=== PATIENT | female | born 1975 | race Caucasian/White ===

== ENCOUNTER → 2017-06-08 15:48 | Outpatient (CLI) | payer SELFPAY ==
--- NOTE | 2017-06-08 13:45 | EMB_PTH ---
PATIENT: BARTOLO DARDEN LOC: [facility] U#:[id number] AGE/SX: 49/F ROOM: RE06/08/[address]: Dr. Arnold Monet MD : 1975 BED: DIS: SPEC #: [id number] RECD: 06/08/17 15:46 STATUS: ROBERTO CARLOS JOBY #: [id number] CARLTON: 06/08/17 13:[address]: Arnold Monet DEPT: SURGICAL PATHOLOGY RECD BY: Fabian Randolph Tissues: Endometrium, NOS Procedures: Surgery Specimen Level IV HEADER OPERATION: Endometrial biopsy PRE-OP DIAGNOSIS: N93.9 TISSUE SUBMITTED: Endometrial biopsy MICROSCOPIC DIAGNOSIS Endometrial biopsy: Simple cystic hyperplasia without atypia. KENA:fay 06/10/17 MICROSCOPIC DESCRIPTION Slides are reviewed. GROSS DESCRIPTION Received in fixative is one container labeled with the patient's name and designated EMB. The specimen consists of multiple fragments of dark brown and campbell tissue measuring in aggregate 3 x 2.5 x 0.5 totally submitted in one cassette. /RY:sp 06/09/17 TC: 5 CPT: 97148
== END ==
PROVIDERS: Visit Provider Obstetrics & Gynecology
DX: N85.01 Benign endometrial hyperplasia (principal); N93.9 Abnormal uterine and vaginal bleeding, unspecified
CPT/HCPCS: 88305

== ENCOUNTER 2017-08-04 05:31 | Day surgery (SDC) | payer SELFPAY ==
[2017-07-27 15:57] LABS: Hematocrit 33.4 % (37-47); Hemoglobin 10.6 g/dl (12.0-15.0); Mean Corp Hgb Conc 31.7 g/gl (32-36); Mean Corpuscular Hgb 26.9 pg (27.0-32.0); Mean Corpuscular Volume 84.8 fL (81-99); Mean Platelet Vol. 8.4 fl (6.2-12.0); Platelet Count 388 K/mm3 (150-450); RBC Distribution Width CV 12.8 % (11.6-14.6); RBC Distribution Width SD 39.4 fl (35.1-43.9); Red Blood Count 3.94 M/mm3 (4.2-5.4); White Blood Count 7.1 K/mm3 (4.4-11.0)
[2017-07-27 15:58] LABS: Scan Indicated on CBC? Y/N NO
[2017-07-27 16:06] LABS: Partial Thromboplast Time 28.1 Seconds (24.1-36.2); Prothrombin Time (Protime)PT. 13.1 SECONDS (11.7-14.9)
[2017-07-27 16:51] LABS: Creatinine, Serum 0.61 mg/dL (0.55-1.02); EST Glomerular Filtration Rate 113 mL/min (>60); Est Glom Filt Rate - Afr Amer 137 mL/min (>60)
[2017-07-27 17:01] LABS: Pregnancy, Serum, hCG Quali. NEGATIVE Negative (0-9 Nonpreg)
--- NOTE | 2017-08-03 19:36 | PCM.HP.BLA ---
History and Physical Date of Admission: 08/04/17 Surgical History and Physical Mar Ash, a 42 year old female 4 0 1 0 4, presents for RAVH/BS on August 04, 2017 at 7:30. -- Simple cystic hyperplasia without atypia -- 42 y.o. G 5 P 4 non-smoker with history of Irregular Menses with bright red bleeding and clots. Reports that she may go months without a menses, then will have bleeding periodically(but almost daily) for several months. EMBx in the office showed hyperplasia. Pt declines conservative treatment and desires to proceed with the above surgery. MEDICATIONS HISTORY: Current medications prescribed by our practice are: 1. Provera 10 mg tablet, One pill by mouth once a day ALLERGIES: No Known Allergies Infections - Chicken pox Illnesses - no serious past illnesses Accidents - None Hospitalizations - see surgery Review of Systems: GENERAL - Denies fever, or chills SKIN - Denies skin changes EYES - wears eye glasses EARS - Denies difficulty hearing NOSE - Denies nasal congestion or bleeding MOUTH - Denies sore throat or difficulty swallowing NECK - Denies pain or swelling RESPIRATORY - Denies shortness of breath or wheezing CARDIOVASCULAR - Denies palpitations or chest pain GASTROINTESTINAL - Denies nausea, vomiting, diarrhea, constipation GENITOURINARY - Denies dysuria, frequency of urination, incontinence of urine MUSCULOSKELETAL - Denies joint or muscle pain NEUROLOGICAL - Denies localized numbness or weakness PSYCHIATRIC - Denies depression or anxiety ENDOCRINE - Denies heat or cold intolerance, weight loss or gain HEMATO-IMMUNOLOGIC - Denies excesive bleeding with cuts SOCIAL HISTORY: Alcohol Use - None Smoking - Never Diet - no special diet Lifestyle - moderate stress lifestyle and Exercise - active work Seat Belt Use - occasional Employer - [employer] Job Description - Senior Litigation Paralegal Illicit Drug Use - None Sexual Activity - Spouse-Sig Other Name - Tani Spouse-Sig Other Occupation - Disabled ([employer]) Children Name(s) - Sameera(99), Elsa(02), Darron(05), Po(08) Control - Not active FAMILY HISTORY: MENSTRUAL HISTORY: LMP Known?- Approximate-Month KnownAmount/Duration - excess amount, Regularity - Irregular, Frequency - variable days, LMP - 07/12/17, Age Onset Menarche - 13 PAST PREGNANCIES: Total Pregnancies - 5; Full Term Pregnancies - 4; Premature - 0; Abortions, Induced - 0; Abortions, Spontaneous - 1; Ectopics - 0; Multiple Births - 0; Living Children - 4 SURGICAL HISTORY: 1. 11/16/2007 PHYSICAL EXAM BP- 140/96 Sitting, Right arm, large cuff Temp- 98.6 Taken Orally Weight- 303.44166 lbs Height- 65.75 inch BMI:49.38 CONSTITUTIONAL - NAD, well nourished, and well developed SKIN - No rash, lesions, or ulcers HEENT - Normocephalic, PERRLA, EOMI NECK - No nodes, no nuchal rigidity and thyroid normal size and texture LYMPH NODES - Palpation of lymph nodes in neck and groins within normal limits LUNGS - CTA x2 without wheezes, crackles or rales CARDIAC - Regular rate and rhythm without rubs, murmurs, or gallops BREAST - No dominant masses, no tenderness, no axillary adenopathy, no nipple discharge, no skin changes ABDOMEN - Without hepatosplenomegaly, distention, masses, rebound, or guarding; normal bowel sounds; no hernias EXTREMITIES - No edema or calf tenderness NEUROLOGICAL - Cranial nerves II-XII grossly intact PSYCHIATRIC - A and O to time, place, person, mood and affect External Genitial Vagina - non-tender without lesions Urethra/Urethral Meatus - non-tender Bladder - non-tender Vagina - vaginal arias are pink and moist without loss of rugae and no evidence of atropy and blood in vagina Cervix - without cervical motion tenderness and has normal size and features without evident lesions Uterus - enlarged uterus 8 wks, wt 125-150 g Adnexa - clear without masses or tenderness ASSESSMENT/PLAN: 1. 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 Pt desires proceeding with RAVH/BS. Discussed RBAs and all questions answered.
[2017-08-04] VITALS (17 sets, daily range): BP systolic 118–148; BP diastolic 65–92; PULSE 57–81; RESP 14–18; TEMP 36.3–37; O2SAT 94–99; BMI 48.9
[2017-08-04 06:00] LABS: Internal QC Validated? YES +Cl - CLEAR BKGD; Pregnancy, Urine Negative Negative
--- NOTE | 2017-08-04 07:30 | HYST_PTH ---
PATIENT: BARTOLO DARDEN LOC: [facility] [place] U#:[id number] AGE/SX: 42/F ROOM: RE08/04/[address]: Dr. Arnold Monet MD : 1975 BED: DIS: 08/05/2017 SPEC #: [id number] RECD: 08/04/17 15:17 STATUS: ROBERTO CARLOS JOBY #: [id number] CARLTON: 08/04/17 07:[address]: Arnold Monet DEPT: SURGICAL PATHOLOGY RECD BY: Sole Sheldon ENTERED: 08/05/17 14:02 SP TYPE: HYSTERECT OTHR DR: Dr. Brian Kwan MD Tissues: Uterus, NOS Procedures: Surgery Specimen Level V HEADER OPERATION: Robotic-assisted vaginal hysterectomy, bilateral salpingectomy PRE-OP DIAGNOSIS: Cystic endometrial hyperplasia without atypia TISSUE SUBMITTED: Uterus, cervix, bilateral fallopian tubes MICROSCOPIC DIAGNOSIS Uterus, cervix, bilateral fallopian tubes, vaginal hysterectomy and bilateral salpingectomy: Cervix ? chronic cystic cervicitis and squamous metaplasia. Endometrium ? proliferative endometrium. - focal superficial hemorrhage, consistent with status post curettage artifacts. - a benign endometrial polyp with cystic changes. Myometrium - no pathologic diagnosis. Bilateral fallopian tubes - no pathologic diagnosis. Right paratubal cyst. SJ:rg 08/09/17 COMMENT Please make reference to previous specimen ([id number]) endometrial biopsy with diagnosis of simple cystic hyperplasia without atypia. Case has been reviewed in consultation with Dr. Alex who concurs with the above diagnosis. IDC:AM MICROSCOPIC DESCRIPTION Slides are reviewed. GROSS DESCRIPTION Received in fixative is one container labeled with the patient's name and designated uterus, cervix, bilateral fallopian tubes. The specimen consists of a hysterectomy specimen consisting of uterus with cervix and attached bilateral fallopian tubes. The uterus with cervix weighs 262 gm and measures 13.5 x 8 x 7 cm. The serosal surface is smooth, glistening with a few instrumentation gonsalves. The ectocervical mucosa is unremarkable. The external os is slit-like in contour. The endocervical canal measures 5 cm in length and the endocervical mucosa is campbell, glistening and unremarkable. The triangular endometrial cavity measures 6 cm in length and up to 3 cm in width. The endometrium is campbell, glistening and hemorrhagic and measures up to 0.2 cm in thickness. A small, possible sessile polyp is noted at the level of internal os. Sections of the uterine wall do not reveal any mass lesion and measures up to 3.5 cm in thickness. The right fallopian tube measures 8.5 cm in length and 0.5 cm in diameter. The fimbrial end is identified. Sections reveal unremarkable cut surfaces. A paratubal cyst is noted filled with chocolate-brown material. The left fallopian tube measures 9 cm in length and 0.8 cm in diameter. It is similar appearance to right. Deckhand Clam Dredge sections are submitted in 14 cassettes as follows: 1 - anterior cervix, 2 - posterior cervix, 3-7 - anterior uterine wall, 8-12 - posterior uterine wall (the entire endometrium is submitted), 13 ? right fallopian tube and paratubal cyst, 14 ? left fallopian tube. / KENA:nancie 08/05/17 TC: CPT: 57667
--- NOTE | 2017-08-04 07:33 | PCM.OP.BLANK ---
Operative Report Date of Procedure: 08/04/17 Surgeon: Arnold Monet MD, FACOG Executive Creative Director: Griffin Garcia CRNA Anesthesia: Tenzin Mims CRNA Type of anesthesia: General Endotracheal Procedure: Robotic Assisted Vaginal Hysterectomy and Bilateral Salpingectomy Pre-Op: Cystic Simple Endometrial Hyperplasia Post-Op: Cystic Simple Endometrial Hyperplasia Findings: 14 cm uterus with normal appearing tubes and ovaries bilaterally Indication: This is a 42 year old patient who has been having problems with heavy and prolonged periods and recently had a biopsy of the endometrium which showed simple cystic endometrial hyperplasia. Conservative measures have not been helpful. The patient has been counseled regarding the risks, benefits and alternatives of this procedure including the possibility of bleeding, infection, and injury to surrounding structures such as bowel bladder and all questions were answered. She understands that is BSO is needed that she will need to be on HRT for an indefinite period of time. Procedure: Pt taken to the operating room where after induction of general anesthesia the patient was prepped and draped in the usual sterile fashion and placed on a non-slip Huggy-u-vac device. Trendendelenburg test was satisfactory. Bladder was drained of urine with a Love catheter which was left in place. Anterior cervix grasped and cervix was dilated to about 3-4 mm. Uterus sounded to 14 cms. 0-Vicryl suture was placed at the 3:00 and 9:00 position of the cervix. A large large v-care device was then placed in the uterus to allow uterine manipulation and attention was turned to the laparoscopic portion of the procedure. Ropivocaine 0.5% was injected approximately 2-3 cm superior to the umbilicus and varies needle was used to insufflate the abdomen after hanging drop technique was used. The abdomen was insufflated with CO2 gas. A 5 mm left upper quadrant port was introduced and airseal insufflation with CO2 was started. An 8 mm robotic camera port was introduced. 8 mm robotic side ports were introduced under direct visualization approximately 11-13 cm lateral and 2 cm inferior to the umbilical port. The above findings were noted. Robot was docked without difficulty and attention turned to the robotic portion of the procedure. Approximately 30 cc of Ropivicaine was used. Bilateral mesosalpinx were ligated with 35 palafox bipolar coagulation to the level of the round ligament. The posterior aspect of the cervix was identified and then opened for about 1 cm using 25 watt monopolar cautery identifying the V-care device which had been placed vaginally. Bladder flap was opened and divided to the level of the round ligaments using monopolar cautery. Progressive bites were then ligated on each side of the cervix with 35 palafox bipolar cautery to the uterine arteries. The anterior vaginal mucosa was then entered and cervix circumscribed with monopolar cautery. Uterus and attached tubes were then removed through the vagina. Vaginal cuff was closed first with 0-Vicryl Sri stitches placed at each angle followed by closure of the mid-cuff with 0-Monocryl V-lock suture in two layers. Pelvis was copiously irrigated with saline and the right ureter was noted to peristalse. Some oozing was noted from the bladder flap so Tuan was used to help with postoperative hemostasis. Robot was undocked and trocars were removed with as much gas as possible. Incisions were closed with 4-0 Monocryl subcuticular sutures and incisions covered with steri-strips and opsite dressing. The patient tolerated the procedure well and was taken to the recovery room in satisfactory condition. Sponge, instruments and needle counts were all correct. There were no apparent complications of the surgery. Cefotan 2 gms IV was given prior to the procedure. Estimated Blood Loss: Minimal Specimen to Pathology: Uterus and bilateral tubes
--- NOTE | 2017-08-04 07:36 | OP.PCM_ITS ---
Operative Report Date of Procedure: 08/04/17 Surgeon: Arnold Monet MD, FACOG Business Administration Professor: Griffin Garcia CRNA Anesthesia: Tenzin Mims CRNA Type of anesthesia: General Endotracheal Procedure: Robotic Assisted Vaginal Hysterectomy and Bilateral Salpingectomy Pre-Op: Cystic Simple Endometrial Hyperplasia Post-Op: Cystic Simple Endometrial Hyperplasia Findings: 14 cm uterus with normal appearing tubes and ovaries bilaterally Indication: This is a 42 year old patient who has been having problems with heavy and prolonged periods and recently had a biopsy of the endometrium which showed simple cystic endometrial hyperplasia. Conservative measures have not been helpful. The patient has been counseled regarding the risks, benefits and alternatives of this procedure including the possibility of bleeding, infection , and injury to surrounding structures such as bowel bladder and all questions were answered. She understands that is BSO is needed that she will need to be on HRT for an indefinite period of time. Procedure: Pt taken to the operating room where after induction of general anesthesia the patient was prepped and draped in the usual sterile fashion and placed on a non-slip Huggy-u-vac device. Trendendelenburg test was satisfactory. Bladder was drained of urine with a Love catheter which was left in place. Anterior cervix grasped and cervix was dilated to about 3-4 mm. Uterus sounded to 14 cms. 0-Vicryl suture was placed at the 3:00 and 9:00 position of the cervix. A large large v-care device was then placed in the uterus to allow uterine manipulation and attention was turned to the laparoscopic portion of the procedure. Ropivocaine 0.5% was injected approximately 2-3 cm superior to the umbilicus and varies needle was used to insufflate the abdomen after hanging drop technique was used. The abdomen was insufflated with CO2 gas. A 5 mm left upper quadrant port was introduced and airseal insufflation with CO2 was started. An 8 mm robotic camera port was introduced. 8 mm robotic side ports were introduced under direct visualization approximately 11-13 cm lateral and 2 cm inferior to the umbilical port. The above findings were noted. Robot was docked without difficulty and attention turned to the robotic portion of the procedure. Approximately 30 cc of Ropivicaine was used. Bilateral mesosalpinx were ligated with 35 palafox bipolar coagulation to the level of the round ligament. The posterior aspect of the cervix was identified and then opened for about 1 cm using 25 watt monopolar cautery identifying the V -care device which had been placed vaginally. Bladder flap was opened and divided to the level of the round ligaments using monopolar cautery. Progressive bites were then ligated on each side of the cervix with 35 palafox bipolar cautery to the uterine arteries. The anterior vaginal mucosa was then entered and cervix circumscribed with monopolar cautery. Uterus and attached tubes were then removed through the vagina. Vaginal cuff was closed first with 0-Vicryl Sri stitches placed at each angle followed by closure of the mid- cuff with 0-Monocryl V-lock suture in two layers. Pelvis was copiously irrigated with saline and the right ureter was noted to peristalse. Some oozing was noted from the bladder flap so Tuan was used to help with postoperative hemostasis. Robot was undocked and trocars were removed with as much gas as possible. Incisions were closed with 4-0 Monocryl subcuticular sutures and incisions covered with steri-strips and opsite dressing. The patient tolerated the procedure well and was taken to the recovery room in satisfactory condition. Sponge, instruments and needle counts were all correct. There were no apparent complications of the surgery. Cefotan 2 gms IV was given prior to the procedure. Estimated Blood Loss: Minimal Specimen to Pathology: Uterus and bilateral tubes
--- NOTE | 2017-08-04 07:36 | PCM.DC.VHY ---
Discharge Diet: No Restrictions Discharge Activity: Return to Normal Activity, May Not Drive - while taking narcotic pain medications., May Shower, May Take a Tub Bath May resume sexual activity in: 6-8 weeks Call your doctor if your incision/area has: Continuous Slow Oozing, Sudden Increased Bleeding, Increased Pain/ Swelling, Increased Redness, Foul Smelling Discharge Call your doctor if you observe: Fever of 101 or Higher, Inability to urinate, Inability to have a bowel movement, Using more than one pad per hour Allergies/Adverse Reactions: Allergies No Known Allergies Allergy (Verified 07/27/17 10:30) Medications to take at Discharge Calcium Carbonate [Calcium] 600 mg PO DAILY 07/27/17 Magnesium Oxide [Magnesium] 400 mg PO DAILY 07/27/17 Medroxyprogesterone Acetate [Provera] 10 mg PO QMONTH 07/27/17 Vitamin B Complex 1 each PO DAILY 07/27/17 Docusate Sodium [Colace] 100 mg PO BID PRN PRN #60 cap 08/04/17 Oxycodone [Oxyir] 5 mg PO Q6H PRN PRN 7 Days #20 tab 08/04/17 The following prescriptions were given: Oxycodone [Oxyir] 5 mg PO Q6H PRN PRN 7 Days #20 tab PRN Reason: Severe Pain (-12/21) Docusate Sodium [Colace] 100 mg PO BID PRN PRN #60 cap PRN Reason: Constipation Primary Care Physician: Brian Kwan MD [Primary Care Provider] - Please Follow Up With: Arnold Monet MD When: 2-3 weeks
[2017-08-04] MEDS: Ropivacaine 0.5% 30 ML Vial (08:40)
--- NOTE | 2017-08-04 12:30 | SUR.PHASEI ---
urine output via glass is 15cc postop/ pt states she feels urge to urinate/ bladder scanned 0cc/ pt educated of potential bladder sensations with cath inplace
[2017-08-04] MEDS: Acetaminophen 500 MG Tablet 1000 MG PO ×2 (15:00→22:20)
[2017-08-04] MEDS: Dextrose 5%-Lactated Ringers 1,000 ML 150 ML IV ×2 (15:37→23:36)
[2017-08-04] MEDS: Ketorolac 30 MG/ML Syringe IV ×2 (16:42→22:20)
[2017-08-04] MEDS: Enoxaparin 40 MG/0.4 ML Syringe SC (18:26)
[2017-08-04] MEDS: 0.9% NaCl Peripheral Flush Adult/Peds IV (22:20)
[2017-08-05] MEDS: Acetaminophen 500 MG Tablet 1000 MG PO (05:05)
[2017-08-05] MEDS: 0.9% NaCl Peripheral Flush Adult/Peds IV ×2 (05:06→10:18)
[2017-08-05] MEDS: Ketorolac 30 MG/ML Syringe IV ×2 (05:06→10:18)
[2017-08-05 05:14] VITALS: BP 118/75; PULSE 85; RESP 18; TEMP 37.4; O2SAT 95
[2017-08-05 06:14] LABS: Creatinine, Serum 0.71 mg/dL (0.55-1.02); EST Glomerular Filtration Rate 96 mL/min (>60); Est Glom Filt Rate - Afr Amer 116 mL/min (>60); Estimated Creatinine Clearance 95.64 ml/min
[2017-08-05 07:23] VITALS: O2SAT 93
[2017-08-05 08:02] VITALS: BP 137/80; PULSE 79; RESP 18; TEMP 36.8; O2SAT 96
--- NOTE | 2017-08-05 09:12 | PCM.PN.OB ---
Subjective: Patient without complaints. Feeling well. Able to void on her own. Denies flatus. - Physical Exam Vital Signs AF, VSS Temp Pulse Resp BP Pulse Ox 98.3 F 79 18 137/80 H 96 08/05/17 08:02 08/05/17 08:02 08/05/17 08:02 08/05/17 08:02 08/05/17 08:02 Oxygen Flow Rate (L/min) 2 Oxygen Delivery Method Room Air Weight: 303 lb 5.697 oz Body Mass Index (BMI) 48.9 Intake and Output for Last 24 Hours 08/03/17 08/04/17 08/05/17 23:59 23:59 23:59 Intake Total 4830 / 4830 2471 / 2471 Output Total 810 / 810 1300 / 1300 Balance 4020 / 4020 1171 / 1171 Laboratory Tests Past 24 Hrs 08/05/17 08/05/17 05:30 05:30 WBC Pending RBC Pending Hgb Pending Hct Pending MCV Pending MCH Pending MCHC Pending RDW Pending RDW Differential Pending Plt Count Pending Neut % (Auto) Pending Absolute Neuts (auto) Pending Total Counted Pending Creatinine 0.71 Estim Creat Clear Calc 95.64 Est GFR (MDRD) Af Amer 116 Est GFR (MDRD) Non-Af 96 Wounds are clean, dry, intact. Good urine output. Minimal vaginal bleeding. Creatinine okay. Hemoglobin pending. Medical Necessity - Tobacco Use Smoking Status: Never smoker Assessment/Plan Doing well. Will release to home with routine instructions.
[2017-08-05 09:20] LABS: Absolute Lymphocyte Count 1.92 X10^3/ul (0.83-4.51); Absolute Neutrophil Count 7.9 X10^3/uL (2.0-7.7); Basophil# 0.01 X10^3/uL; Basophil% 0.1 % (0-1); Eosinophil# 0.03 X10^3/uL; Eosinophils% 0.3 % (0-5); Hematocrit 29.8 % (37-47); Hemoglobin 9.5 g/dl (12.0-15.0); Lymphocyte # 1.92 X10^3/ul (4.0); Lymphocyte % 18.3 % (19-41); Mean Corp Hgb Conc 31.9 g/gl (32-36); Mean Corpuscular Volume 84.7 fL (81-99); Mean Platelet Vol. 8.8 fl (6.2-12.0); Monocyte# 0.68 X10^3/uL; Monocyte% 6.5 % (0-10); Neutrophil # 7.85 X10^3/uL (2.7-7.7); Neutrophil % 74.7 % (47-70); POSITIVE COUNT NO; POSITIVE DIFFERENTIAL NO; POSITIVE MORPHOLOGY NO; Platelet Count 297 K/mm3 (150-450); RBC Distribution Width CV 13.1 % (11.6-14.6); RBC Distribution Width SD 39.9 fl (35.1-43.9); Red Blood Count 3.52 M/mm3 (4.2-5.4); White Blood Count 10.5 K/mm3 (4.4-11.0)
[2017-08-05] MEDS: oxyCODONE 5 MG Tablet PO (11:34)
[2017-08-05 11:39] VITALS: BP 137/80; PULSE 79; RESP 18; TEMP 36.8; O2SAT 96
== END 2017-08-05 11:42 | disposition home or self-care (01) ==
LOC: SDC 05:32 → AC 05:33 → ACINP 10:28 → MS2 08-05 11:45
PROVIDERS: Family Provider Family Medicine; PCP Family Medicine; Visit Provider Obstetrics & Gynecology
PROC: 0UT90ZZ Resection of Uterus, Open Approach (ICD-10-PCS; CPT 58554; principal; 2017-08-04 07:10)
DX: N85.01 Benign endometrial hyperplasia (principal); N83.8 Other noninflammatory disorders of ovary, fallopian tube and broad ligament; N84.0 Polyp of corpus uteri; N72 Inflammatory disease of cervix uteri; N85.2 Hypertrophy of uterus; Z79.899 Other long term (current) drug therapy
CPT/HCPCS: 00940; 58554; S2900; 36415; 81025; 82565; 84703; 85025; 85027; 85610; 85730; 86850; 86900; 88307; J7120; A4216